=== PATIENT | male | born 1945 | race Hispanic/Latino ===

== ENCOUNTER 2017-09-10 15:24 | Inpatient (IN) | payer MEDICARE ==
[2017-09-10 15:26] VITALS: BMI 27.7
--- NOTE | 2017-09-10 15:49 | ED PDOC ---
Arrival/HPI - General Chief Complaint: Altered Mental Status Time Seen by Provider: 09/10/17 15:41 Historian: Patient, Spouse - History of Present Illness Narrative History of Present Illness (Text): 09/10/17 19:33 pt p/w + acute onset of right arm heaviness/weakness; pt states around ~ 230- 300pm this afternoon, pt felt severe right arm heavy, inability to control right hand/finger/arm dexterity; pt's spouse witness the event and spoke to pt' s PCP and was instructed to come to ED immediately for further eval; pt was noted by family/spouse over the last 1 week (since 09/01) with intermittent periods of speech change/slurr speech; pt states he otherwise feels well; pt states no fever/chills/sweats, no cp/sob/palpitations, no abd pain, no n/v, no numbness/tingling, no urinary/bowel changes, no incontinence; pt + drinks ETOH nearly daily and drank prior to ED arrival; pt is here for further eval; pt's without other complaints Pt is right hand dominate last Spinal surgery was years ago PCP: Dr Reynolds Time/Duration: Prior to Arrival Symptom Onset: Sudden Symptom Course: Unchanged Activities at Onset: Rest Context: Home Past Medical History - Provider Review Nursing Documentation Reviewed: Yes - Travel History Have you recently traveled outside [place] w/in the past 3 mons?: No - Infectious Disease Hx of Infectious Diseases: None - Tetanus Immunization Tetanus Immunization: Up to Date - Cardiac Hx Hypertension: Yes - Psychiatric Hx Depression: No Hx Emotional Abuse: No Hx Physical Abuse: No Hx Substance Use: No - Past Surgical History Past Surgical History: No Previous - Suicidal Assessment Feels Threatened In Home Enviroment: No Family/Social History - Physician Review Nursing Documentation Reviewed: Yes Family/Social History: No Known Family HX Smoking Status: Heavy Smoker > 10 Cigarettes Daily (1 PPD smoker) Hx Alcohol Use: Yes Hx Substance Use: No Hx Substance Use Treatment: No Allergies/Home Meds Allergies/Adverse Reactions: Allergies No Known Allergies Allergy (Verified 09/10/17 15:40) Home Medications: Home Meds Medication Instructions Recorded Confirmed Metoprolol Succinate [Toprol XL] 50 mg PO DAILY 09/10/17 09/10/17 Naproxen [Naprosyn] 500 mg PO BID 09/10/17 09/10/17 Valsartan/Hydrochlorothiazide 1 tab PO DAILY 09/10/17 09/10/17 [Valsartan and Hydrochlorothiazide 12.5 mg-320] Review of Systems - Review of Systems Constitutional: Normal Eyes: Normal ENT: Normal Respiratory: Normal Cardiovascular: Normal Gastrointestinal: Normal Genitourinary Male: Normal Musculoskeletal: Normal Skin: Normal Neurological: Focal Weakness. absent: Gait Changes, Facial Droop, Seizure Endocrine: Normal Hemo/Lymphatic: Normal Psychiatric: Normal Physical Exam Vital Signs Reviewed: Yes (WNL) Vital Signs Temp Pulse Resp BP Pulse Ox 09/10/17 19:10 98.9 F 69 16 127/70 96 09/10/17 18:24 78 18 132/70 97 09/10/17 18:06 98.1 F 64 18 129/65 98 09/10/17 18:04 98.8 F 63 95 H 137/73 15 L 09/10/17 17:41 69 16 139/63 96 09/10/17 17:20 71 18 125/65 96 09/10/17 17:08 66 16 125/65 94 L 09/10/17 16:51 78 18 106/52 L 95 09/10/17 16:39 72 20 113/48 L 95 09/10/17 16:12 75 21 109/53 L 95 Temperature: Afebrile Blood Pressure: Normal Pulse: Regular Respiratory Rate: Normal Appearance: Positive for: Well-Appearing, Non-Toxic, Other (mildly uncomfortable , resting in bed, alert/awake, GCS = 15, oriented x 3, cooperative, NAD) Pain Distress: None Mental Status: Positive for: Alert and Oriented X 3 - Systems Exam Head: Present: Atraumatic, Normocephalic Pupils: Present: PERRL, Other (no nystagmus, no photophobia, sclera anicteric; visual field intact b/l) Extroacular Muscles: Present: EOMI Conjunctiva: Present: Normal Ears: Present: Normal Mouth: Present: Moist Mucous Membranes Pharnyx: Present: Normal Neck: Present: Normal Range of Motion, Trachea Midline. No: MIDLINE TENDERNESS Respiratory/Chest: Present: Clear to Auscultation, Good Air Exchange, Other (no w/r/r, no accessory muscle use noted, no tachypenia). No: Respiratory Distress , Accessory Muscle Use Cardiovascular: Present: Regular Rate and Rhythm, Normal S1, S2. No: Murmurs Abdomen: Present: Normal Bowel Sounds, Other (well nourished male, no focal tenderness, no head's sign, no mcburney's point tenderness, no masses/rebound/ guarding/rigidity). No: Tenderness, Distention, Peritoneal Signs Back: Present: Normal Inspection Upper Extremity: Present: Normal Inspection, Normal ROM, NORMAL PULSES, Capillary Refill < 2s, Other (+ strength decr to right arm ~+4/5; strength intact 5/5 to left arm; neurovasc intact b/l, no gross deformities). No: Cyanosis, Edema Lower Extremity: Present: Normal Inspection, NORMAL PULSES, Normal ROM, Neurovascularly Intact, Capillary Refill < 2 s, Other (+ ambulatory, neurovasc intact b/l, strength 5-/5 grossly intact b/l). No: Edema Neurological: Present: GCS=15, CN II-XII Intact, Speech Normal, Other (NIH stroke scale ~ 3-4; no slurr speech noted) Skin: Present: Warm, Dry, Normal Color, Other (cap refill < 1sec, no ulcerations , no petechiae). No: Rashes Psychiatric: Present: Alert, Oriented x 3, Normal Insight, Normal Concentration Medical Decision Making ED Course and Treatment: 09/10/17 15:46 Impression: right arm weakness i have consider all the differential diagnosis regarding pt's chief medical complaints/clinical findings, including but are not limited to: r/o CVA, ? etoh , r/o TIA A/P: acute onset right arm weakness - labs - iv - xray - ct - observe - supportive care 09/10/17 15:47 CODE stroke activated ~ 3:37pm i spoke to Dr Sandoval, [facility] neurology, made aware of pt's medical complaints, agrees with ED dx/mgt, pt is ? candidate for tPA, will continue to evaluate patient, would like pt's CT Head results prior to making decision regarding prescription of tPA for patient 09/10/17 17:04 Dr Sandoval is made aware of negative CT head, and recommends tPA for the patient, will see/evaluate patient in the hospital 4:00pm - i spoke to family/patient at length, pt is a candidate for tPA, family is made aware and would like to think about it 4:30pm - family/pt after much thought agrees with receiving tPA i received the tPA bolus/infusion from pharmacy ~ 4:50pm, pt remained symptomatic with NIH stroke scale ~ 3-4 (right arm weakness), vital signs are stable, and pushed the tPA bolus ~ 458pm over 1 min; pt is currently doing well , no new symptom complaints 5:00pm - I spoke to Dr Parekh, pt's admitting PCP, made aware, agrees with ED mgt /txt and agrees with ICU admission/placement 5:05pm - Dr Mena, ICU attending made aware, agrees with ICU admission/ placement 09/10/17 19:40 pt is currently doing well pt states his right arm weakness appears to be much improved pt denied any headaches, no numbness/tingling vital signs are stable pt is made aware of his medical results agrees with admission Re-evaluation Time: 17:12 Reassessment Condition: Improving,but remains with symptoms - Critical Care Critical Care Minutes: 45 minutes Critical Care Time: Excluding Proc Time Narrative Critical Care (Text): 09/10/17 17:12 critical care time: 45min, excluding procedure time, excluding time teaching residents/students/mid-level providers; including initial eval/diagnosis, diagnostic interpretation, re-eval, consultations, final disposition - Lab Interpretations Lab Results: 09/10/17 16:00 09/10/17 16:00 Lab Results 09/10/17 16:00: Alcohol, Quantitative 118 H 09/10/17 16:00: Blood Type O POSITIVE, Antibody Screen Negative, BBK History Checked No verified bt 09/10/17 16:00: Sodium 139, Potassium 3.8, Chloride 98, Carbon Dioxide 28, Anion Gap 16, BUN 21, Creatinine 1.1, Est GFR ( Amer) > 60, Est GFR (Non- Af Amer) > 60, Random Glucose 86, Calcium 10.0, Total Bilirubin 0.5, AST 31, ALT 37, Alkaline Phosphatase 42, Troponin I 0.01, Total Protein 7.7, Albumin 4.5 , Globulin 3.2, Albumin/Globulin Ratio 1.4 09/10/17 16:00: PT 10.6, INR 0.97, APTT 28.4 09/10/17 16:00: WBC 5.9, RBC 4.79, Hgb 11.3 L, Hct 35.9 L, MCV 74.9 L, MCH 23.6 L, MCHC 31.5, RDW 14.1, Plt Count 175, MPV 10.7, Gran % 59.0, Lymph % (Auto) 31.3, [place] % (Auto) 5.1, Eos % (Auto) 3.9, Baso % (Auto) 0.7, Gran # 3.49, Lymph # 1.9, [place] # 0.3, Eos # 0.2, Baso # 0.04 WNL I have reviewed the lab results: Yes Interpretation: All labs normal - RAD Interpretation Radiology Orders: 09/10/17 15:42 HEAD W/O (CODE STROKE) [CT] Stat CHEST PORTABLE [RAD] Stat PROCEDURE: CT HEAD WITHOUT CONTRAST. HISTORY: Code Stroke COMPARISON: None available. TECHNIQUE: Axial computed tomography images were obtained through the head/brain without intravenous contrast. Radiation dose: Total exam DLP = 1007.46 MGy-cm. This CT exam was performed using one or more of the following dose reduction techniques: Automated exposure control, adjustment of the mA and/or kV according to patient size, and/or use of iterative reconstruction technique. FINDINGS: HEMORRHAGE: No intracranial hemorrhage. BRAIN: There are moderate chronic microangiopathic changes. There is no mass, mass effect or abnormal extra-axial fluid collection. There are coarse atherosclerotic calcifications in the cavernous carotid arteries. VENTRICLES: There is mild age-related global parenchymal volume loss and proportionate enlargement of the ventricles and cortical sulci. There is a prominent cisterna magna. CALVARIUM: The skull base and calvarium are normal. PARANASAL SINUSES: There is mild scattered mucosal thickening in the ethmoid air cells. The remaining included paranasal sinuses are predominantly clear. MASTOID AIR CELLS: Predominantly clear. OTHER FINDINGS: None. IMPRESSION: No acute intracranial abnormality. If there is a persistent focal neurologic deficit and an ongoing clinical concern for acute infarction, an MRI of the brain without intravenous contrast would be a more sensitive modality for evaluation of hyperacute/acute ischemic infarction. Moderate chronic microangiopathic changes and mild age-related global parenchymal volume loss. Important findings were discussed with Dr. Panchito Raman on 09/10/2017 at 3:50 p.m. HISTORY: CVA COMPARISON: No prior. FINDINGS: LUNGS: The lungs are well inflated and clear. PLEURA: No significant pleural effusion identified, no pneumothorax apparent. CARDIOVASCULAR: Normal. OSSEOUS STRUCTURES: No significant abnormalities. VISUALIZED UPPER ABDOMEN: Normal. OTHER FINDINGS: None. IMPRESSION: No active pulmonary disease. CXR: NAD County Records Management Officer: Radiologist - EKG Interpretation EKG Interpretation (Text): 09/10/17 17:12 Sinus rhythm at 60 bpm with 1st degree av block, normal axis, no ectopy, no st- t changes, BORDERLINE EKG; no old ekg to compare with 09/10/17 17:14 Interpreted by ED Physician: Yes Type: 12 lead EKG Comparison: No previous EKG avail. - Medication Orders Current Medication Orders: Sodium Chloride (Sodium Chloride 0.9%) 1,000 mls @ 100 mls/hr IV .Q10H LORI Last Admin: 09/10/17 16:13 Dose: 100 mls/hr eMAR Start Stop Document 09/10/17 16:13 [email or web address] (Rec: 09/10/17 16:13 [email or web address] [id number]) Intravenous Solution Start Date 09/10/17 Start Time 16:13 End Date 09/10/17 Discontinued Medications Alteplase, Recombinant (Activase 100 Mg Inj) 9 mg 0.09 mg/kg (9 mg) IV ONCE ONE Stop: 09/10/17 16:45 Last Admin: 09/10/17 17:01 Dose: 9 mg Comments: Given by Dr. Kilpatrick. eMAR Start Stop Document 09/10/17 17:01 [email or web address] (Rec: 09/10/17 17:02 [email or web address] [id number]) Intravenous Solution Start Date 09/10/17 Start Time 16:58 End Date 09/10/17 Alteplase, Recombinant (Activase 100 Mg Inj) 76 mg 0.81 mg/kg (77 mg) IV ONCE ONE Stop: 09/10/17 17:01 Last Admin: 09/10/17 17:03 Dose: 76 mg eMAR Start Stop Document 09/10/17 17:03 [email or web address] (Rec: 09/10/17 17:03 [email or web address] [id number]) Intravenous Solution Start Date 09/10/17 Start Time 17:03 End Date 09/10/17 End time 18:03 Total Infusion Time 60 NIHSS Stroke Scale 3 - Date/Time Evaluation Performed Date Performed: 09/10/17 Time Performed: 15:35 When Was NIHSS Performed: Code Stroke - How Severe is the Stroke Level of Consciousness: 0=Alert LOC to Questions: 0=Both comments correct LOC to commands: 0=Obeys both correctly Best Gaze: 0=Normal Visual: 0=No visual loss Facial: 0=Normal Motor Arm - Left: 0=No drift Motor Arm - Right: 2=Falls before 10 sec Motor Leg - Left: 1=Drift before 5 sec Motor Leg - Right: 1=Drift before 5 sec Limb Ataxia: 0=Absent Sensory: 0=Normal Best Language: 0=No aphasia Dysarthia: 0=Normal articulation Extinction & Inattention (Neglect): 0=Normal, no object Score: 4 Disposition/Present on Arrival - Present on Arrival Any Indicators Present on Arrival: No History of DVT/PE: No History of Uncontrolled Diabetes: No Urinary Catheter: No History Surgical Site Infection Following: None - Disposition Have Diagnosis and Disposition been Completed?: Yes Diagnosis: CVA (cerebral vascular accident), Alcohol intoxication Disposition: HOSPITALIZED Disposition Time: 17:16 Patient Plan: Admission, ICU Patient Problems: Current Active Problems Problem Status Onset CVA (cerebral vascular accident) Acute Alcohol intoxication Acute Condition: FAIR Referrals: Mark Reynolds MD [Primary Care Provider] - Follow up with primary Forms: [employer] (Indonesian)
--- NOTE | 2017-09-10 16:07 | CT ---
PROCEDURE: CT HEAD WITHOUT CONTRAST. HISTORY: Code Stroke COMPARISON: None available. TECHNIQUE: Axial computed tomography images were obtained through the head/brain without intravenous contrast. Radiation dose: Total exam DLP = 1007.46 MGy-cm. This CT exam was performed using one or more of the following dose reduction techniques: Automated exposure control, adjustment of the mA and/or kV according to patient size, and/or use of iterative reconstruction technique. FINDINGS: HEMORRHAGE: No intracranial hemorrhage. BRAIN: There are moderate chronic microangiopathic changes. There is no mass, mass effect or abnormal extra-axial fluid collection. There are coarse atherosclerotic calcifications in the cavernous carotid arteries. VENTRICLES: There is mild age-related global parenchymal volume loss and proportionate enlargement of the ventricles and cortical sulci. There is a prominent cisterna magna. CALVARIUM: The skull base and calvarium are normal. PARANASAL SINUSES: There is mild scattered mucosal thickening in the ethmoid air cells. The remaining included paranasal sinuses are predominantly clear. MASTOID AIR CELLS: Predominantly clear. OTHER FINDINGS: None. IMPRESSION: No acute intracranial abnormality. If there is a persistent focal neurologic deficit and an ongoing clinical concern for acute infarction, an MRI of the brain without intravenous contrast would be a more sensitive modality for evaluation of hyperacute/acute ischemic infarction. Moderate chronic microangiopathic changes and mild age-related global parenchymal volume loss. Important findings were discussed with Dr. Panchito Raman on 09/10/2017 at 3:50 p.m.
[2017-09-10] MEDS: Sodium Chloride 0.9% 1,000 ML IV SCH (16:13)
--- NOTE | 2017-09-10 16:13 | RAD ---
HISTORY: CVA COMPARISON: No prior. FINDINGS: LUNGS: The lungs are well inflated and clear. PLEURA: No significant pleural effusion identified, no pneumothorax apparent. CARDIOVASCULAR: Normal. OSSEOUS STRUCTURES: No significant abnormalities. VISUALIZED UPPER ABDOMEN: Normal. OTHER FINDINGS: None. IMPRESSION: No active pulmonary disease.
[2017-09-10 16:24] LABS: BASO # 0.04 K/mm3 (0.0-2.0); BASO % 0.7 % (0.0-3.0); EOS # 0.2 (0.0-0.7); EOS % 3.9 % (1.5-5.0); GRAN # 3.49 (1.4-6.5); HEMOGLOBIN 11.3 g/dL (14.0-18.0); LYMPH # 1.9 (1.2-3.4); LYMPH % 31.3 % (22.0-35.0); MEAN CELL VOLUME 74.9 fl (80.0-105.0); MEAN CORPUSCULAR HEMOGLOBIN 23.6 pg (25.0-35.0); MEAN CORPUSCULAR HGB CONC 31.5 g/dl (31.0-37.0); MEAN PLATELET VOLUME 10.7 fl (7.0-11.0); MONO # 0.3 (0.1-0.6); MONO % 5.1 % (1.0-6.0); RBC 4.79 10^6/uL (3.5-6.1); RED CELL DISTRIBUTION WIDTH 14.1 % (11.5-14.5); WHITE BLOOD COUNT 5.9 10^3/ul (4.5-11.0)
[2017-09-10 16:31] LABS: ALB/GLOB RATIO 1.4 (1.1-1.8); ALBUMIN 4.5 g/dL (3.0-4.8); ALT/SGPT 37 U/L (7-56); AST/SGOT 31 U/L (17-59); BLOOD UREA NITROGEN 21 mg/dL (7-21); GFR AFRICAN-AMERICAN > 60; GFR NON-AFRICAN AMERICAN > 60
[2017-09-10 16:37] LABS: INR 0.97 (0.93-1.08); PARTIAL THROMBOPLASTIN TIME 28.4 Seconds (25.1-36.5); PROTHROMBIN TIME 10.6 SECONDS (9.4-12.5)
[2017-09-10 16:43] LABS: TROPONIN I 0.01 ng/mL
--- NOTE | 2017-09-10 18:28 | CP.PCM.CON ---
History of Present Illness - History of Present Illness History of Present Illness: Critical Care Consult Note HPI Patient is 71yo male with PMHx of HTN, HLD, active smoker, presented with RUE wekaness that started at 3pm. Pt reports he could not lift his R arm. Denies fever, chills, numbness, tingling, GARCIA, dizziness, syncope/LOC, speech dysarthria. No other constitutional symptoms. initial CT head negative. Given tPA after discussion with neurology. Currently tPA infusing, symptoms nearly completely resolved. PMHx as above PSHx as above Allergies NKDA Meds as per EMR ROS as above FHx NC Review of Systems - Review of Systems Review of Systems: as per HPI Past Patient History - Infectious Disease Hx of Infectious Diseases: None - Tetanus Immunizations Tetanus Immunization: Up to Date - Past Social History Smoking Status: Heavy Smoker > 10 Cigarettes Daily (1 PPD smoker) - CARDIAC Hx Hypertension: Yes - MUSCULOSKELETAL/RHEUMATOLOGICAL Hx Musculoskeletal Disorders: Yes Hx Back Pain: Yes - PSYCHIATRIC Hx Depression: No Hx Emotional Abuse: No Hx Physical Abuse: No Hx Substance Use: No - SURGICAL HISTORY Hx Surgeries: Yes - ANESTHESIA Hx Anesthesia: Yes Hx Anesthesia Reactions: No Hx Malignant Hyperthermia: No Meds Allergies/Adverse Reactions: Allergies Allergy/AdvReac Type Severity Reaction Status Date / Time No Known Allergies Allergy Verified 09/10/17 15:40 - Medications Medications: Current Medications Sodium Chloride (Sodium Chloride 0.9%) 1,000 mls @ 100 mls/hr IV .Q10H LORI Last Admin: 09/10/17 16:13 Dose: 100 mls/hr Physical Exam - Constitutional Appears: Well, Non-toxic, No Acute Distress - Head Exam Head Exam: NORMAL INSPECTION - Eye Exam Eye Exam: EOMI, Normal appearance - ENT Exam ENT Exam: Mucous Membranes Moist - Neck Exam Neck exam: Positive for: Tenderness - Respiratory Exam Respiratory Exam: Clear to Auscultation Bilateral, NORMAL BREATHING PATTERN - Cardiovascular Exam Cardiovascular Exam: REGULAR RHYTHM, +S1, +S2 - GI/Abdominal Exam GI & Abdominal Exam: Normal Bowel Sounds, Soft - Extremities Exam Extremities exam: Positive for: normal inspection - Neurological Exam Neurological exam: Alert, CN II-XII Intact, Oriented x3 Additional comments: motor 5/5 all ext Results - Vital Signs Recent Vital Signs: Last Vital Signs Temp 98.1 F 09/10/17 18:06 Pulse 78 01/02/18 18:24 Resp 18 09/10/17 18:24 BP 132/70 09/10/17 18:24 Pulse Ox 97 09/10/17 18:24 - Labs Result Diagrams: 09/10/17 16:00 09/10/17 16:00 Labs: Laboratory Results - last 24 hr 09/10/17 09/10/17 09/10/17 16:00 16:00 16:00 WBC 5.9 RBC 4.79 Hgb 11.3 L Hct 35.9 L MCV 74.9 L MCH 23.6 L MCHC 31.5 RDW 14.1 Plt Count 175 MPV 10.7 Gran % 59.0 Lymph % (Auto) 31.3 [place] % (Auto) 5.1 Eos % (Auto) 3.9 Baso % (Auto) 0.7 Gran # 3.49 Lymph # 1.9 [place] # 0.3 Eos # 0.2 Baso # 0.04 PT 10.6 INR 0.97 APTT 28.4 Sodium 139 Potassium 3.8 Chloride 98 Carbon Dioxide 28 Anion Gap 16 BUN 21 Creatinine 1.1 Est GFR ( Amer) > 60 Est GFR (Non-Af Amer) > 60 Random Glucose 86 Calcium 10.0 Total Bilirubin 0.5 AST 31 ALT 37 Alkaline Phosphatase 42 Troponin I 0.01 Total Protein 7.7 Albumin 4.5 Globulin 3.2 Albumin/Globulin Ratio 1.4 Alcohol, Quantitative Blood Type Antibody Screen BBK History Checked 09/10/17 09/10/17 16:00 16:00 WBC RBC Hgb Hct MCV MCH MCHC RDW Plt Count MPV Gran % Lymph % (Auto) [place] % (Auto) Eos % (Auto) Baso % (Auto) Gran # Lymph # [place] # Eos # Baso # PT INR APTT Sodium Potassium Chloride Carbon Dioxide Anion Gap BUN Creatinine Est GFR ( Amer) Est GFR (Non-Af Amer) Random Glucose Calcium Total Bilirubin AST ALT Alkaline Phosphatase Troponin I Total Protein Albumin Globulin Albumin/Globulin Ratio Alcohol, Quantitative 118 H Blood Type O POSITIVE Antibody Screen Negative BBK History Checked No verified bt Assessment & Plan - Assessment and Plan (Free Text) Assessment: 71yo male a/w Acute RUE weakness, s/p tPA Recommend: - supp o2 as needed - panculture - IVF hydration - speech swallow eval - ECHO - monitor for bleeding - repeat CTH in 24 hours - follow up neuro - check Lipid Panel, HgbA1C - GI ppx - DVT ppx, SCDs - Admit to MICU
--- NOTE | 2017-09-11 08:58 | CT ---
PROCEDURE: CT HEAD WITHOUT CONTRAST. HISTORY: follow up tpa COMPARISON: Unenhanced head CT 09/10/2017. TECHNIQUE: Axial computed tomography images were obtained through the head/brain without intravenous contrast. Radiation dose: Total exam DLP = 962.19 mGy-cm. This CT exam was performed using one or more of the following dose reduction techniques: Automated exposure control, adjustment of the mA and/or kV according to patient size, and/or use of iterative reconstruction technique. FINDINGS: HEMORRHAGE: No intracranial hemorrhage. BRAIN: Stable appearing diffuse cerebral atrophy chronic microangiopathy are identified as well as prominent cisterna magna or arachnoid cyst at the midline posterior fossa. No interval cortical edema or mass-effect is identified. Midline brain anatomy is stable once again. VENTRICLES: Unremarkable. No hydrocephalus. CALVARIUM: Unremarkable. PARANASAL SINUSES: Unremarkable as visualized. No significant inflammatory changes. MASTOID AIR CELLS: Unremarkable as visualized. No inflammatory changes. OTHER FINDINGS: None. IMPRESSION: Stable unenhanced head CT a indicating diffuse cerebral atrophy and chronic microangiopathy as discussed above, once again. No acute intracranial findings by standard CT criteria. Follow-up MRI is available if clinically warranted.
[2017-09-11] MEDS ORDERED: [UNRECOGNIZED DRUG - OTHER] PO SCH (10:00)
[2017-09-11] MEDS ORDERED: HYDROCHLOROTHIAZIDE PO SCH (10:00)
[2017-09-11] MEDS ORDERED: VALSARTAN PO SCH (10:00)
[2017-09-11] MEDS: Metoprolol Succinate 50 mg XL Tab PO SCH (10:00)
--- NOTE | 2017-09-11 10:54 | CP.PCM.PN ---
Subjective - Date & Time of Evaluation Date of Evaluation: 09/11/17 Time of Evaluation: 07:30 - Subjective Subjective: Pt seen and examined reports right sided weakness has completely resolved. Objective - Vital Signs/Intake and Output Vital Signs (last 24 hours): Temp Pulse Resp BP Pulse Ox 98.0 F 71 18 131/78 95 09/11/17 02:35 09/11/17 10:10 09/11/17 10:10 09/11/17 10:10 09/11/17 10:10 - Medications Medications: Current Medications Famotidine (Pepcid) 20 mg PO DAILY LORI Hydrochlorothiazide (Microzide) 12.5 mg PO DAILY LORI Sodium Chloride (Sodium Chloride 0.9%) 1,000 mls @ 100 mls/hr IV .Q10H LORI Last Admin: 09/10/17 16:13 Dose: 100 mls/hr Metoprolol Succinate (Toprol Xl) 50 mg PO DAILY LORI Valsartan (Diovan) 320 mg PO DAILY LORI - Labs Labs: PT 10.6 SECONDS (9.4-12.5) 09/10/17 16:00 INR 0.97 (0.93-1.08) 09/10/17 16:00 APTT 28.4 Seconds (25.1-36.5) 09/10/17 16:00 - Constitutional Appears: Well, Non-toxic, No Acute Distress - Eye Exam Eye Exam: EOMI - ENT Exam ENT Exam: Mucous Membranes Moist - Respiratory Exam Respiratory Exam: Clear to Ausculation Bilateral, NORMAL BREATHING PATTERN - Cardiovascular Exam Cardiovascular Exam: REGULAR RHYTHM, +S1, +S2 - GI/Abdominal Exam GI & Abdominal Exam: Soft, Normal Bowel Sounds - Extremities Exam Extremities Exam: Full ROM, Normal Inspection - Neurological Exam Neurological Exam: Alert, Awake, Oriented x3 Neuro motor strength exam: Left Upper Extremity: 5, Right Upper Extremity: 5, Left Lower Extremity: 5, Right Lower Extremity: 5 Assessment and Plan - Assessment and Plan (Free Text) Assessment: 71yo male a/w Acute RUE weakness, s/p tPA RUE Weakness/Acute CVA, resolved Hx of smoking HTN HLD - repeat CT head negative Recommend: - supp o2 as needed - IVF hydration - ECHO - follow up neuro - CIWA protocol - check Lipid Panel, HgbA1C - GI ppx - DVT ppx, SCDs - monitor in MICU
[2017-09-11 11:29] LABS: BASO # 0.06 K/mm3 (0.0-2.0); BASO % 1.3 % (0.0-3.0); EOS # 0.2 (0.0-0.7); EOS % 5.3 % (1.5-5.0); GRAN # 2.63 (1.4-6.5); GRAN % 58.1 % (50.0-68.0); HEMOGLOBIN 10.8 g/dL (14.0-18.0); LYMPH # 1.2 (1.2-3.4); LYMPH % 26.7 % (22.0-35.0); MEAN CELL VOLUME 75.4 fl (80.0-105.0); MEAN CORPUSCULAR HEMOGLOBIN 23.7 pg (25.0-35.0); MEAN CORPUSCULAR HGB CONC 31.4 g/dl (31.0-37.0); MEAN PLATELET VOLUME 11.1 fl (7.0-11.0); MONO # 0.4 (0.1-0.6); MONO % 8.6 % (1.0-6.0); RBC 4.56 10^6/uL (3.5-6.1); RED CELL DISTRIBUTION WIDTH 14.2 % (11.5-14.5); WHITE BLOOD COUNT 4.5 10^3/ul (4.5-11.0)
[2017-09-11 12:10] LABS: BLOOD UREA NITROGEN 17 mg/dL (7-21); CALCIUM 9.9 mg/dL (8.4-10.5); GFR AFRICAN-AMERICAN > 60; GFR NON-AFRICAN AMERICAN > 60; HDL CHOLESTEROL 55 mg/dL (29-60)
[2017-09-11 12:21] LABS: LDL CHOLESTEROL 111 mg/dL (0-129)
[2017-09-11] MEDS ORDERED: Pneumococcal 23-Valent Vaccine IM ONE (14:03)
[2017-09-11] MEDS ORDERED: Influenza Vaccine 60 mcg/0.5 mL SYR (4YR UP) IM ONE (14:03)
--- NOTE | 2017-09-11 15:04 | CP.PCM.CON ---
History of Present Illness - History of Present Illness History of Present Illness: Mr. Gruber is a 71-year-old man with a past medical history of HLD, HTN, active smoker, who developed right upper extremity weakness suddenly while he was attempting to use a fork at around 3 PM. He was brought to the ED within an hour of symptom onset. CT scan of the head was negative for acute bleed. His NIHSS was a 3, and he was given IV tPA. His symptoms essentially have resolved since then and repeat CT head is stable without any significant changes. Review of Systems - Review of Systems All systems: reviewed and no additional remarkable complaints except Past Patient History - Infectious Disease Hx of Infectious Diseases: None - Tetanus Immunizations Tetanus Immunization: Up to Date - Past Social History Smoking Status: Heavy Smoker > 10 Cigarettes Daily - CARDIAC Hx Hypertension: Yes - HEENT Hx HEENT Problems: Yes Hx Cataracts: Yes (b/l sx) Hx Glaucoma: Yes (tx by dr lundberg since 2017) - MUSCULOSKELETAL/RHEUMATOLOGICAL Hx Falls: Yes (past) - PSYCHIATRIC Hx Substance Use: No - SURGICAL HISTORY Hx Surgeries: Yes - ANESTHESIA Hx Anesthesia: Yes Hx Anesthesia Reactions: No Hx Malignant Hyperthermia: No Meds Allergies/Adverse Reactions: Allergies Allergy/AdvReac Type Severity Reaction Status Date / Time No Known Allergies Allergy Verified 09/10/17 15:40 - Medications Medications: Current Medications Famotidine (Pepcid) 20 mg PO DAILY [facility] Last Admin: 09/11/17 13:01 Dose: 20 mg Hydrochlorothiazide (Microzide) 12.5 mg PO DAILY [facility] Last Admin: 09/11/17 10:01 Dose: 12.5 mg Sodium Chloride (Sodium Chloride 0.9%) 1,000 mls @ 100 mls/hr IV .Q10H [facility] Last Admin: 09/10/17 16:13 Dose: 100 mls/hr Metoprolol Succinate (Toprol Xl) 50 mg PO DAILY [facility] Last Admin: 09/11/17 10:00 Dose: 50 mg Valsartan (Diovan) 320 mg PO DAILY [facility] Physical Exam - Constitutional Appears: Well - Head Exam Head Exam: ATRAUMATIC, NORMAL INSPECTION, NORMOCEPHALIC - Eye Exam Eye Exam: EOMI, Normal appearance, PERRL - ENT Exam ENT Exam: Mucous Membranes Moist, Normal Exam - Neck Exam Neck exam: Positive for: Normal Inspection - Respiratory Exam Respiratory Exam: Clear to Auscultation Bilateral, NORMAL BREATHING PATTERN - Cardiovascular Exam Cardiovascular Exam: REGULAR RHYTHM, +S1, +S2 - GI/Abdominal Exam GI & Abdominal Exam: Normal Bowel Sounds, Soft. absent: Tenderness - Neurological Exam Neurological exam: Alert, CN II-XII Intact, Normal Gait, Oriented x3, Reflexes Normal Additional comments: Right upper extremity slight pronator drift is noted with NIHSS of 1. - Psychiatric Exam Psychiatric exam: Normal Affect, Normal Mood - Skin Skin Exam: Dry, Intact, Normal Color, Warm Results - Vital Signs Recent Vital Signs: Last Vital Signs Temp 98 F 09/11/17 13:50 Pulse 65 09/11/17 13:50 Resp 18 09/11/17 13:50 BP 124/57 L 09/11/17 13:50 Pulse Ox 99 09/11/17 13:46 - Labs Result Diagrams: 09/11/17 11:00 09/11/17 11:20 Labs: Laboratory Results - last 24 hr 09/11/17 09/11/17 09/11/17 02:03 11:00 11:20 WBC 4.5 D RBC 4.56 Hgb 10.8 L Hct 34.4 L MCV 75.4 L MCH 23.7 L MCHC 31.4 RDW 14.2 Plt Count 142 MPV 11.1 H Gran % 58.1 Lymph % (Auto) 26.7 Stephens % (Auto) 8.6 H Eos % (Auto) 5.3 H Baso % (Auto) 1.3 Gran # 2.63 Lymph # 1.2 Stephens # 0.4 Eos # 0.2 Baso # 0.06 Sodium 138 Potassium 4.2 Chloride 102 Carbon Dioxide 28 Anion Gap 13 BUN 17 Creatinine 0.9 Est GFR ( Amer) > 60 Est GFR (Non-Af Amer) > 60 Random Glucose 99 Calcium 9.9 Triglycerides 132 Cholesterol 204 H LDL Cholesterol Direct 111 HDL Cholesterol 55 Blood Type Confirm O POSITIVE Assessment & Plan (1) CVA (cerebral vascular accident) Assessment and Plan: He has multiple risk factors for stroke and most likely had a lacunar infarct that was mitigated by tPA. I recommend the followin. Telemetry 2. MRI of the brain without contrast 3. CTA of the head/neck 4. Aspirin 81 mg daily and Plavix 75 mg daily, 24 hours after tPA administration 5. PT/OT eval and treat 6. Echocardiogram with bubble study 7. Lipitor 40 mg daily 8. Check lipids, HbA1c, homocysteine levels, B12, folate, Vitamin D 9. Case management consult 10. Smoking cessation counseling Thank you. Status: Acute Priority: High
--- NOTE | 2017-09-11 15:12 | CARD ---
APPROVED REPORT EKG Measurement Heart [id number] <Conclusion> Sinus rhythm with 1st degree AV block Otherwise normal ECG
[2017-09-11] MEDS: Sodium Chloride 0.9% 1,000 ML IV SCH (17:20)
--- NOTE | 2017-09-11 18:06 | HP ---
CHIEF COMPLAINT AND HISTORY OF PRESENT ILLNESS: This is a 71-year-old male who is coming into the hospital because of right-sided arm weakness. The patient states that at about 3:00 p.m. yesterday, he started having weakness in his right arm, so he was concerned and came into the ER for further evaluation. He said it was becoming heavy; he had difficulty in controlling his hands. Patient had called his primary care doctor, Dr. Reynolds, and was advised to come into the ER for further evaluation. According to the notes, there were intermittent periods of slurred speech. Patient does have a history of drinking alcohol daily. Patient denies any chest pain or shortness of breath. No headache. No nausea. No vomiting. He is right handed. The patient was given tPA and he states his right arm has improved. He has no headaches, no dizziness, no blurred vision. No chest pain or shortness of breath. No weakness in the arms or in the legs. No bleeding history. No falls. REVIEW OF SYSTEMS: All other review of symptoms are within normal limits except as mentioned. ALLERGIES: NO KNOWN DRUG ALLERGIES. HOME MEDICATIONS: Toprol, naproxen, and losartan/hydrochlorothiazide. SOCIAL HISTORY: The patient does smoke about half a pack a day. He does drink daily. FAMILY HISTORY: Noncontributory. PAST MEDICAL HISTORY: Hypertension, spinal surgery, chronic back pain. PHYSICAL EXAMINATION: VITAL SIGNS: Temperature is 98, pulse is 79, blood pressure 150/73, respirations 18, O2 saturation 96%. Height is 6 feet 1 inch, weight is 210 pounds, BMI is 27.7. GENERAL: The patient lying in bed, uncomfortable, and in no acute distress. HEENT: Atraumatic and normocephalic. Anicteric sclerae. Moist mucosa. Mccloud conjunctivae. No oral lesions. NECK: No JVD, anterior and posterior adenopathy, thyromegaly, or bruits. CARDIOVASCULAR: S1 and S2 regular. No murmur, rubs, or gallop. LUNGS: Clear to auscultation bilaterally. No wheezes, rales, or rhonchi. ABDOMEN: Bowel sounds are positive. Soft, nontender and nondistended. No hepatosplenomegaly. No rebound and no guarding EXTREMITIES: No cyanosis, clubbing, or edema. NEUROLOGIC: No facial asymmetry. Tongue is midline. No uvula deviation. Power is 5/5 upper extremity and lower extremity. Sensation intact in upper extremity and lower extremity. PSYCHIATRIC: He is awake, alert and oriented x3. No anxiety or depression. He has normal affect. GENITOURINARY: No CVA tenderness. VASCULAR: 2+ pulses in the carotid pulses and pedal pulses. SKIN: No erythema or nodules SPINE: Shows normal curvature. LABORATORY DATA: White count of 5.9, hemoglobin of 11.3, INR is 0.97. Chemistry has been reviewed. Creatinine is 1.1. Toxicology shows alcohol is 118. Patient's head CT done shows no acute intracranial abnormalities. There is moderate chronic microangiopathic changes that are age related. CT of the head, repeat CT after the tPA shows a stable, unenhanced CT, no acute intracranial findings. Patient's chest x-ray shows no infiltrates. Patient's EKG shows first-degree AV block and sinus rhythm at 60. No ST-T changes. ASSESSMENT: 1. Acute cerebrovascular accident with right arm weakness, status post tissue plasminogen activator, improved. 2. Hypertension. 3. Chronic back pain. 4. Alcoholism. PLAN: The patient is currently comfortable. He is on Diovan for hypertension and hydrochlorothiazide. His blood pressure is controlled. The patient is on metoprolol daily and has an echo that has been ordered. Neurology will see the patient. Cholesterol has been ordered. Khalif Jay MD
--- NOTE | 2017-09-12 06:47 | CP.PCM.PN ---
Subjective - Date & Time of Evaluation Date of Evaluation: 09/12/17 Time of Evaluation: 06:44 - Subjective Subjective: Mr. Gruber was seen and examined at the bedside. He is alert, oriented in all spheres. He denies any headache, dizziness, lightheadedness, weakness, numbness , nausea, or vomiting. He is able to follow simple commands. He further states of his inability to tolerate MRI. He prefers an open MRI. There was no untoward events overnight. Objective - Vital Signs/Intake and Output Vital Signs (last 24 hours): Temp Pulse Resp BP Pulse Ox 97.9 F 51 L 25 H 131/67 100 09/12/17 04:59 09/12/17 04:50 09/12/17 04:50 09/12/17 04:00 09/12/17 04:50 Intake and Output: 09/11/17 09/12/17 18:59 06:59 Intake Total 690 Output Total 300 Balance 390 - Medications Medications: Current Medications Aspirin (Aspirin Chewable) 81 mg PO DAILY [facility] Atorvastatin Calcium (Lipitor) 40 mg PO DIN [facility] Clopidogrel Bisulfate (Plavix) 75 mg PO DAILY [facility] Famotidine (Pepcid) 20 mg PO DAILY [facility] Last Admin: 09/11/17 13:01 Dose: 20 mg Hydrochlorothiazide (Microzide) 12.5 mg PO DAILY [facility] Last Admin: 09/11/17 10:01 Dose: 12.5 mg Sodium Chloride (Sodium Chloride 0.9%) 1,000 mls @ 100 mls/hr IV .Q10H [facility] Last Admin: 09/11/17 17:20 Dose: 100 mls/hr Metoprolol Succinate (Toprol Xl) 50 mg PO DAILY [facility] Last Admin: 09/11/17 10:00 Dose: 50 mg Valsartan (Diovan) 320 mg PO DAILY [facility] Last Admin: 09/11/17 17:23 Dose: 320 mg - Labs Labs: 09/11/17 11:00 09/11/17 11:20 PT 10.6 SECONDS (9.4-12.5) 09/10/17 16:00 INR 0.97 (0.93-1.08) 09/10/17 16:00 APTT 28.4 Seconds (25.1-36.5) 09/10/17 16:00 - Constitutional Appears: No Acute Distress - Head Exam Head Exam: NORMAL INSPECTION - Neurological Exam Neurological Exam: Alert, Awake, CN II-XII Intact, Oriented x3 Neuro motor strength exam: Left Upper Extremity: 5, Right Upper Extremity: 5, Left Lower Extremity: 5, Right Lower Extremity: 5 Additional comments: Neurological improved from previous examination. Assessment and Plan (1) CVA (cerebral vascular accident) Assessment & Plan: Case discussed with Dr. Sandoval, recommends CTA of the head and neck, follow up echocardiogram with omar, homocysteine, vitamin B12, vitamin D, folate, smoking cessation. DVT prophylaxis. Start with aspirin 81 mg po daily, Plavix 75 mg PO daily, and Lipitor 40 mg PO daily. Status: Acute
[2017-09-12] MEDS: Metoprolol Succinate 50 mg XL Tab PO SCH (09:33)
--- NOTE | 2017-09-12 11:44 | CT ---
PROCEDURE: CT Angiography of the Brain. HISTORY: ischemic stroke COMPARISON: None available. TECHNIQUE: CT angiography of the intracranial arteries was performed. Coronal and sagittal maximum intensity projection reformated images were generated. This CT exam was performed using one or more of the following dose reduction techniques: Automated exposure control, adjustment of the mA and/or kV according to patient size, and/or use of iterative reconstruction technique. FINDINGS: INTERNAL CEREBRAL ARTERIES: There is extensive atherosclerotic plaque identified at the bilateral carotid bulb regions resulting in bilateral high-grade ICA stenoses moderate bilateral cavernous internal artery stenoses identified as well. Limited stenoses identified well under 50 percent at the proximal bilateral common carotid arteries. No occlusive changes are identified bilaterally. ANTERIOR CEREBRAL ARTERIES: Unremarkable. A1 and A2 segments are widely patent. Smaller distal branches unremarkable, as visualized. MIDDLE CEREBRAL ARTERIES: Unremarkable. M1 and M2 segments are widely patent. Perisylvian branches grossly symmetric. POSTERIOR CIRCULATION: Basilar Artery: Patent without significant stenosis. Distal Vertebral Arteries: Patent without significant stenosis. Right dominant vertebrobasilar circulation identified. Posterior Cerebral Arteries: Patent without significant stenosis. Posterior Inferior Cerebellar Arteries: Unremarkable. NECK CTA: Common carotid arteries: The bilateral common carotid appear patent from their origins to their bifurcations with no significant stenosis appreciated. Limited stenoses identified well under 50 percent at the proximal bilateral common carotid arteries. No occlusive changes are identified bilaterally. No evidence to suggest common carotid artery dissection. Internal carotid arteries: High-grade stenosis identified at their origins as discussed in initial findings section above. Vertebral arteries: The bilateral vertebral arteries appear normal in caliber from their origins to their junction with the basilar artery. Vertebrobasilar system appears right dominant. No significant stenosis or definite pattern of dissection. Incidentally, the bilateral subclavian arteries are widely patent as well as the brachiocephalic artery. ANEURYSM/ VASCULAR MALFORMATIONS: None. OTHER FINDINGS: None. IMPRESSION: 1. Extensive carotid bulbar atherosclerotic plaques identified resulting in bilateral high-grade proximal ICA stenoses well over 80 percent stenosed. [id number] bilateral cavernous carotid ICA stenoses are identified as well. 2. Symmetric twenty-nine palms Wiseman anatomy in general including bilateral SANJUANA and MCA primary through at least tertiary branches. 3. Patent vertebrobasilar circulation.
[2017-09-12 18:20] LABS: FOLATE 11.9 ng/mL
--- NOTE | 2017-09-12 18:50 | PN ---
DATE: 09/12/2017 SUBJECTIVE: The patient has no complaints of any chest pain. No shortness of breath. No headaches or dizziness. He is able to move his arms and legs. PHYSICAL EXAMINATION: VITAL SIGNS: Temperature is 97.9, pulse of 57, blood pressure 133/56, and respirations 20. GENERAL: The patient is lying in bed, flat, comfortable. HEENT: No oral lesion. Anicteric sclerae. Moist mucosa. NECK: No JVD, adenopathy, or thyromegaly. CARDIOVASCULAR: S1 and S2, regular. No murmurs, rubs, or gallops. LUNGS: Clear to auscultation bilaterally. No wheeze, rales, or rhonchi. ABDOMEN: Bowel sounds are positive, soft, nontender and nondistended. EXTREMITIES: No cyanosis, clubbing or edema. LABORATORY DATA: White count of 4.5 and hemoglobin of 10.8. Creatinine is 0.9. His head and neck CTA done shows extensive carotid bulbar atherosclerotic plaques identified resulting in bilateral high-grade proximal ICA stenosis with over 80% stenosis. ASSESSMENT: 1. Acute cerebrovascular accident with right arm weakness, status post tPA. 2. Bilateral carotid artery stenosis. 3. Hypertension. 4. Chronic back pain. PLAN: The patient is currently comfortable. He is being followed by Neurology. The patient is going to be transferred to the medical-surgical floor. I will get Dr. Oziel Gill from Interventional Radiology to evaluate the patient's carotid stenosis. The patient is on valsartan for hypertension. He is going to continue with hydrochlorothiazide as well. He is on Plavix and aspirin. He is on a heart-healthy diet. Lipitor has been started on the patient as well. Khalif Jay MD
--- NOTE | 2017-09-13 07:59 | CP.PCM.PN ---
Subjective - Date & Time of Evaluation Date of Evaluation: 09/13/17 Time of Evaluation: 07:59 - Subjective Subjective: was seen and examined at the bedside. He is alert, oriented in all spheres. He denies any headache, numbness, weakness, dizziness, blurred vision, lightheadedness, nausea, or vomiting. He is able to perform his ADL independently. The CTA of the head and neck showed carotid bulbar atherosclerosis. The patient primary physician at bedside and suggest to the patient of seeing a vascular surgeon upon discharge. The patient also agreeable to see the neurologist in 2 weeks post discharge.There was no untoward events overnight. Objective - Vital Signs/Intake and Output Vital Signs (last 24 hours): Temp Pulse Resp BP Pulse Ox 97.9 F 57 L 43 H 117/64 90 L 09/12/17 04:59 09/12/17 10:24 09/12/17 10:24 09/12/17 15:35 09/12/17 09:50 Intake and Output: 09/13/17 09/13/17 06:59 18:59 Intake Total 350 Output Total 1300 Balance -950 - Medications Medications: Current Medications Aspirin (Aspirin Chewable) 81 mg PO DAILY [facility] Last Admin: 09/12/17 09:34 Dose: 81 mg Atorvastatin Calcium (Lipitor) 40 mg PO DIN [facility] Last Admin: 09/12/17 18:13 Dose: 40 mg Clopidogrel Bisulfate (Plavix) 75 mg PO DAILY [facility] Last Admin: 09/12/17 09:32 Dose: 75 mg Famotidine (Pepcid) 20 mg PO DAILY [facility] Last Admin: 09/12/17 09:34 Dose: 20 mg Hydrochlorothiazide (Microzide) 12.5 mg PO DAILY [facility] Last Admin: 09/12/17 09:32 Dose: 12.5 mg Metoprolol Succinate (Toprol Xl) 50 mg PO DAILY [facility] Last Admin: 09/12/17 09:33 Dose: 50 mg Valsartan (Diovan) 320 mg PO DAILY [facility] Last Admin: 09/12/17 09:32 Dose: 320 mg - Labs Labs: 09/11/17 11:00 09/11/17 11:20 PT 10.6 SECONDS (9.4-12.5) 09/10/17 16:00 INR 0.97 (0.93-1.08) 09/10/17 16:00 APTT 28.4 Seconds (25.1-36.5) 09/10/17 16:00 - Constitutional Appears: No Acute Distress - Head Exam Head Exam: NORMAL INSPECTION - Neurological Exam Neurological Exam: Alert, Awake, CN II-XII Intact, Oriented x3 Neuro motor strength exam: Left Upper Extremity: 5, Right Upper Extremity: 5, Left Lower Extremity: 5, Right Lower Extremity: 5 Additional comments: Neurological unchanged from previous examination. Assessment and Plan (1) CVA (cerebral vascular accident) Assessment & Plan: Case discussed with Dr. Sandoval, continue all current medical regimen and if patient is for discharge to continue aspirin 81 mg PO daily, Plavix 75 mg PO daily, and Atorvastatin 40 mg PO daily and follow up in 2 weeks in the outpatient office. Status: Acute
--- NOTE | 2017-09-13 08:44 | DS ---
HISTORY OF PRESENT ILLNESS: The patient is a 71-year-old male who had come in to the hospital and found to have a CVA with right-sided arm weakness. He was given t-PA and has improvement of his symptoms. The patient is currently comfortable. He had repeat CAT scan done that did not show any significant abnormalities. A neck CTA done showed he has bilateral carotid artery stenosis. He had been placed on aspirin, Plavix and Lipitor. He was being followed by Neurology. Neurology has cleared him for discharge. The patient is given the number for Dr. Oziel Gill for interventional radiology to evaluate the carotid stenosis. He will most likely need an MRI. I spoke with the nurse practitioner of Dr. Sandoval and the patient will need outpatient MRI to be done by their office. He is going to follow up with them as well. He is ambulating. He has no complaint of any headaches or dizziness. His strength is back to his baseline. I do not think he is going to need outpatient physical therapy. PHYSICAL EXAMINATION: VITAL SIGNS: Temperature is 97.9, pulse of 57, blood pressure is 117/64, respirations are 12. GENERAL: The patient is lying in bed, flat, comfortable. HEENT: No oral lesion. Anicteric sclerae. Moist mucosa. NECK: No JVD, adenopathy, or thyromegaly. CARDIOVASCULAR: S1 and S2, regular. No murmurs, rubs, or gallops. LUNGS: Clear to auscultation bilaterally. No wheeze, rales, or rhonchi. ABDOMEN: Bowel sounds are positive, soft, nontender and nondistended. EXTREMITIES: no cyanosis, clubbing or edema. ASSESSMENT: 1. Acute cerebrovascular accident with right-sided arm weakness, status post tissue plasminogen activator, resolved. 2. Bilateral carotid artery stenosis. 3. Hypertension. 4. Chronic back pain. 5. Dyslipidemia. PLAN: The patient is currently on Diovan and hydrochlorothiazide for his hypertension. He is going to continue with Plavix and aspirin. He is on Lipitor for dyslipidemia. He is on a heart healthy diet. CONDITION: Stable. ACTIVITIES: Increase as tolerated. Khalif Jay MD [facility] # [id number]
[2017-09-13 08:56] VITALS: BP 120/73; RESP 20; TEMP 98.1; O2SAT 99
[2017-09-13] MEDS: Metoprolol Succinate 50 mg XL Tab PO SCH (09:53)
[2017-09-13 09:58] VITALS: PULSE 50
--- NOTE | 2017-09-13 15:51 | CARD ---
APPROVED REPORT EXAM: Two-dimensional and M-mode echocardiogram with Doppler and color Doppler. INDICATION CVA/TIA 2D DIMENSIONS Left Atrium (2D)4.3 (1.6-4.0cm)IVSd1.6 (0.7-1.1cm) LVDd4.5 (3.9-5.9cm)PWd1.5 (0.7-1.1cm) LVDs3.5 (2.5-4.0cm)FS (%) 23.3 % LVEF (%)46.8 (>50%) M-Mode DIMENSIONS Aortic Root2.60 (2.2-3.7cm)Aortic Cusp Exc.1.10 (1.5-2.0cm) Aortic Valve AoV Peak Ccfwwolf368.0cm/Misha Peak GR.14mmHg Mitral Valve MV E Dkrlcsih41.6cm/sMV A Kblzaxfh87.3cm/sE/A ratio0.7 TDI E/Lateral E'0.0E/Medial E'0.0 Tricuspid Valve TR Peak [id number]/sRAP [id number] Peak Gr.19mmHg [id number] LEFT VENTRICLE The left ventricle is normal size. There is mild concentric left ventricular hypertrophy. Left ventricle systolic function is borderline.EF-45-50% There is borderline global hypokinesis of the left ventricle. Transmitral Doppler flow pattern is Grade III-reversible restrictive diastolic dysfunction. No left ventricle thrombus noted on this study. There is no ventricular septal defect visualized. There is no left ventricular aneurysm. There is no mass noted in the left ventricle. RIGHT VENTRICLE The right ventricle is normal size. There is normal right ventricular wall thickness. The right ventricular systolic function is normal. ATRIA The left atrium is mildly dilated. The right atrium size is normal. The interatrial septum is intact with no evidence for an atrial septal defect, by Bubble Study. AORTIC VALVE The aortic valve is calcified but opens well. There is trace aortic regurgitation. There is no aortic valvular stenosis. There is no aortic valvular vegetation. MITRAL VALVE The mitral valve is thickened but opens well. Mitral regurgitation is trace. There is no mitral valve stenosis. There is no evidence of mitral valve prolapse. TRICUSPID VALVE The tricuspid valve leaflets are thickened , but open well. There is trace tricuspid regurgitation.RVSP-29 mmof Hg. There is no tricuspid valve stenosis. There is no tricuspid valve prolapse or vegetation. PULMONIC VALVE The pulmonary valve is normal in structure. There is no pulmonic valvular regurgitation. There is no pulmonic valvular stenosis. GREAT VESSELS The aortic root is normal in size. The ascending aorta is normal in size. The pulmonary artery is normal. The IVC is normal in size and collapses >50% with inspiration. PERICARDIAL EFFUSION There is no pleural effusion. There is no pericardial effusion. <Conclusion> The left ventricle is normal size. There is mild concentric left ventricular hypertrophy. Left ventricle systolic function is borderline.EF-45-50% There is trace aortic regurgitation. Mitral regurgitation is trace. There is trace tricuspid regurgitation.RVSP-29 mmof Hg. The IVC is normal in size and collapses >50% with inspiration. There is no pericardial effusion. No vegetation or thrombus noted. The interatrial septum is intact with no evidence for an atrial septal defect, by Bubble Study.
== END 2017-09-13 13:30 | disposition home or self-care (01) | DRG 62 ==
LOC: ED 15:24 → ERH 17:16 → CCU 09-11 15:25 → 3RNO 09-12 18:57
PROVIDERS: ADMIT Internal Medicine Medical Oncology; ATTEND Internal Medicine Nephrology
DX: I63.9 Cerebral infarction, unspecified (principal); G81.91 Hemiplegia, unspecified affecting right dominant side; I10 Essential (primary) hypertension; R29.704 NIHSS score 4; I65.23 Occlusion and stenosis of bilateral carotid arteries; F17.210 Nicotine dependence, cigarettes, uncomplicated; G89.29 Other chronic pain; M54.9 Dorsalgia, unspecified; H40.9 Unspecified glaucoma; E78.5 Hyperlipidemia, unspecified; F10.229 Alcohol dependence with intoxication, unspecified; Y90.5 Blood alcohol level of 100-119 mg/100 ml

== ENCOUNTER 2018-09-10 09:57 | Day surgery (SDC) | payer MEDICARE ==
[2018-09-10] MEDS ORDERED: Propofol 10 mg/ml Inj (20 ML) ONE (12:42)
[2018-09-10] MEDS ORDERED: Sodium Chloride 0.9% 1,000 ML IV SCH (13:45)
[2018-09-10 16:16] VITALS: BP 165/80; PULSE 65; RESP 16; TEMP 97.6; O2SAT 100
== END 2018-09-10 15:11 | disposition home or self-care (01) ==
LOC: ENDO 09:57
PROVIDERS: ATTEND Internal Medicine Gastroenterology
DX: K92.1 Melena (principal); K25.9 Gastric ulcer, unspecified as acute or chronic, without hemorrhage or perforation; K44.9 Diaphragmatic hernia without obstruction or gangrene; D12.2 Benign neoplasm of ascending colon; K63.5 Polyp of colon; D64.9 Anemia, unspecified; K57.30 Diverticulosis of large intestine without perforation or abscess without bleeding; K64.0 First degree hemorrhoids
CPT/HCPCS: 43239; 45380; 88305; 88342; J2704; J7030; J7040

== ENCOUNTER 2018-12-24 08:48 | Outpatient (CLI) | payer MEDICARE | END 2018-12-24 08:49 | disposition home or self-care (01) | LOC: PAT 08:48 ==

== ENCOUNTER 2019-01-05 08:41 | Day surgery (SDC) | payer MEDICARE ==
[2019-01-05 10:04] VITALS: BMI 27.7
[2019-01-05] MEDS ORDERED: Propofol 10 mg/ml Inj (20 ML) ONE ×3 (10:17→11:34)
[2019-01-05] MEDS ORDERED: Sodium Chloride 0.9% 1,000 ML IV SCH (12:00)
[2019-01-05 14:24] VITALS: BP 137/58; PULSE 47; RESP 18; TEMP 97.5
[2019-01-05 14:25] VITALS: O2SAT 100
== END 2019-01-05 13:45 | disposition home or self-care (01) ==
LOC: ENDO 08:41
PROVIDERS: ATTEND Internal Medicine Gastroenterology
DX: D12.2 Benign neoplasm of ascending colon (principal); D12.0 Benign neoplasm of cecum; D12.3 Benign neoplasm of transverse colon; I10 Essential (primary) hypertension; E78.5 Hyperlipidemia, unspecified
CPT/HCPCS: 45380; 45385; 45390; 88305; J2704; J7030; J7040